=== PATIENT | female | born 1990 | race Caucasian/White ===

== ENCOUNTER 2018-05-26 11:10 | Emergency (ER) | END 2018-05-26 14:19 | disposition home or self-care (01) ==

== ENCOUNTER 2018-09-14 16:55 | Outpatient (CLI) | payer OTHER ==
[~2018-09-14] VITALS: Ht 154.9 cm; Wt 82.2 kg
[2018-09-14] MEDS ORDERED: PNV11TAB PO (17:34)
[2018-09-14 17:35] VITALS: BP 113/73; PULSE 95; RESP 18; Ht 154.9 cm; Wt 82.2 kg
--- NOTE | 2018-09-14 21:24 | PN ---
Triage Information Date/Time Reason for visit: Possible leakage of fluid and vaginal discharge Weeks of Gestation 23 weeks and 6 days /Para G 3 para 1011 Diabetes: none Hypertention: none Objective Vital Signs Date Temp Pulse Resp B/P (MAP) Pulse Ox O2 O2 Flow FiO2 Time Delivery Rate 09/14/18 98.1 95 18 113/73 Room Air 17:35 (86) Heart Rate: 130's Contractions: None Results/Medications Results 24 hrs Laboratory Tests Test 09/14/18 18:00 09/14/18 19:00 Membranes Rupture NEGATIVE Urine Color YELLOW Urine Clarity SLIGHTLY CLOUDY A Urine pH 7.0 Urine Specific [place] 1.010 Urine Ketones NEGATIVE Urine Nitrite NEGATIVE Urine Bilirubin NEGATIVE Urine Urobilinogen NEGATIVE Urine Leukocyte Esterase TRACE A Urine Microscopic RBC 1 Urine Microscopic WBC 1 Urine Squamous Epithelial Cells MODERATE Urine Bacteria FEW A Urine Hemoglobin NEGATIVE Urine Glucose NEGATIVE Urine Total Protein NEGATIVE Imaging Results FINDINGS: position: Variable. heart rate: 157 bpm. Placenta location: Posterior with a grade of 1. Previa: None. Abruption: None. Cervix: Closed with a length of 4.0 cm. MVP: 6.4 cm. IMPRESSION: Single live intrauterine gestation in variable position. MVP = 6.4 cm. Disposition: Discharge Assessment/Plan 28-year-old with single intrauterine at 23 weeks and 6 days with a JANIE of 01/05/2019 complaining of possible leakage of fluid and vaginal discharge. heart rate is category 1. She has no uterine contractions. Ultrasound performed as noted above. Speculum exam performed moderate amount of discharge, no leakage of fluid or gush of fluid seen. ROM plus is collected. Nitrazine test was negative. ROM plus was negative. Patient reassured. Prescription for metronidazole 500 mg every 12 hours for 7 days given for possible bacterial vaginosis. Symptoms and sign of labor, preeclampsia, kick count discussed with patient, she voiced understanding. All of her questions answered. Patient was discharged home in stable condition with the appropriate discharge instructions provided. I would like patient to have close follow-up with her primary physician or outpatient clinic in 1-2 days or return to triage for worsening symptoms or any other urgent concerns. WILLY STROUD Sep 14, 2018 21:24
--- NOTE | 2018-09-14 23:18 | TRIAGE ---
OB Triage Datetime Report Generated by CPN: 09/14/2018 23:18 Datetime: 09/14/2018 21:13 Monitor Mode: External Datetime: 09/14/2018 21:00 Labor Evaluation Frequency: 0 Monitor Mode: External Datetime: 09/14/2018 20:00 Labor Evaluation Frequency: X1 Monitor Mode: External Duration (sec)2399: 40 Quality: Mild Pattern: Normal: <= 5 Contractions in 10 Minutes Resting Tone [place]: Relaxed Datetime: 09/14/2018 19:25 Pain Assessment Pain Scale: 6 Pain Presence: Constant Pain Type: Ache Pain Location: Back; Left Flank Pain Goal: 2 Pain Assessment Comments: pt complaining of 6/10 constant back pain and left sided flank pain upon percussion. Datetime: 09/14/2018 18:17 Labor Evaluation Frequency: 0 Monitor Mode: External Pattern: Normal: <= 5 Contractions in 10 Minutes Resting Tone [place]: Relaxed Contraction Comments: NONE NOTED Heart Rate Monitor Mode: External US Variability: Moderate 6-25 bpm Accelerations: 10X10 Decelerations: None Category: Category I Datetime: 09/14/2018 17:56 Assessment Type: Triage EGA: 23.6 Maternal Assessment Level of Consciousness: Fully Conscious DTR's/Clonus: DTRs 2+; No Clonus Headache: Denies Blurred Vision: No Respiratory Effort: Unlabored; Regular Rhythm; Equal Expansion Breath Sounds, Left: Clear and Equal Breath Sounds, Right: Clear and Equal Nausea/Vomiting: Denies RUQ Epigastric Pain: Denies Lower Extremities Edema: None Degree: None Upper Extremities Edema: None Degree: None Facial Edema: None Fall Risk Assessment History of Falling: (0) No Secondary Diagnosis: (0) No Ambulatory Aid: (0) Bedrest/Nurse Assist IV Therapy: (0) No Gait: (0) Normal/Bedrest/Immobile Mental Status: (0) Oriented to Own Ability Fall Score: 0 Fall Risk Score Definition: No Risk: No action required Datetime: 09/14/2018 17:54 Time of Arrival: 09/14/2018 16:47 Arrived By: Ambulatory Arrived From: Home Chief Complaint: leaking since last week Movement: Present Contractions: Denies/Absent Rupture of Membranes: Denies Vaginal Bleeding: None Vaginal Discharge: Denies Recent Sexual Intercouse: Denies Abdominal Trauma: Not Applicable Patient Complaints: Other Time Provider Notified: 09/14/2018 21:02 Provider Notified: LUANNE Initial Plan: nst, rom+, BPP, CERVICAL LENGTH, UA URINE C_S
== END 2018-09-14 21:22 | disposition home or self-care (01) ==
LOC: OBT 16:55 → L-D 16:57 → SDS 17:10 → L-D 17:19 → OBT 21:22
PROVIDERS: ATTEND Obstetrics & Gynecology
DX: O41.92X0 Disorder of amniotic fluid and membranes, unspecified, second trimester, not applicable or unspecified (principal); Z3A.23 23 weeks gestation of pregnancy
CPT/HCPCS: 76815; 76817; 81001; 84112; 87086; Z7500; G0463

== ENCOUNTER 2018-10-08 18:01 | Outpatient (CLI) | payer OTHER ==
[~2018-10-08] VITALS: Ht 160 cm; Wt 84.5 kg
[~2018-10-08 18:01] MED LIST: PNV11TAB PO
[2018-10-08 18:23] VITALS: Ht 160 cm; Wt 84.5 kg
[2018-10-08 18:24] VITALS: BP 113/66; PULSE 122; RESP 18
--- NOTE | 2018-10-09 01:14 | PN ---
Triage Information Date/Time October 09, 2018 Reason for visit: Abd/pelvic pain Weeks of Gestation 27 weeks and 2 days /Para 4 para 1 Diabetes: none Hypertention: none Additional information 28-year-old with IUP at 27 weeks and 2 days presented with complaint of lower abdominal pain and pelvic pressure. She denies any urinary symptoms. She denies any leaking of fluid, vaginal bleeding or decreased movement. Objective Vital Signs Date Temp Pulse Resp B/P (MAP) Pulse Ox O2 O2 Flow FiO2 Time Delivery Rate 10/08/18 97.8 122 18 113/66 18:24 (82) Heart Rate: 130's Heart Rate Comments Category 1 and appropriate for gestational age Contractions: None Exam General appearance: Alert and oriented x4 does not appear to be in any acute distress Abdomen: Soft, gravid, fundal height consider gestational age NST: Category 1 and appropriate for gestational age No contraction noted on the toco Cervical length 4 cm Fever: 8/8 Results/Medications Result Diagram: 10/08/18 1914 Results 24 hrs Laboratory Tests Test 10/08/18 18:15 10/08/18 19:14 Urine Color STRAW Urine Clarity CLEAR Urine pH 7.0 Urine Specific [place] 1.008 Urine Ketones NEGATIVE Urine Nitrite NEGATIVE Urine Bilirubin NEGATIVE Urine Urobilinogen NEGATIVE Urine Leukocyte Esterase NEGATIVE Urine Hemoglobin NEGATIVE Urine Glucose NEGATIVE Urine Total Protein NEGATIVE White Blood Count 10.1 Red Blood Count 3.49 L Hemoglobin 10.5 L Hematocrit 31.3 L Mean Corpuscular Volume 89.7 Mean Corpuscular Hemoglobin 30.1 Mean Corpuscular Hemoglobin Concent 33.5 Red Cell Distribution Width 14.1 Platelet Count 251 Mean Platelet Volume 8.9 Immature Granulocytes % 1.100 H Neutrophils % 67.2 Lymphocytes % 22.9 Monocytes % 7.5 Eosinophils % 1.1 Basophils % 0.2 Nucleated Red Blood Cells % 0.0 Immature Granulocytes # 0.110 H Neutrophils # 6.8 Lymphocytes # 2.3 Monocytes # 0.8 Eosinophils # 0.1 Basophils # 0.0 Nucleated Red Blood Cells # 0.0 Imaging Results PROCEDURE: US biophysical profile. CLINICAL INDICATION: labor. well-being. TECHNIQUE: Multiple sonographic images of the uterus were obtained. The images were reviewed on a PACS workstation. COMPARISON: US PELVIS 09/14/2018 FINDINGS: There is a single live intrauterine gestation. heart rate is 150 beats per minute. The position is breech. The placenta is posterior fundal, grade 1. The MVP is 8.2 cm. The cervix is closed and measures 4 cm. Breathing Movement: 2 Gross Body Movement: 2 Tone: 2 Qualitative Amniotic Fluid Volume: 2 TOTAL: 8 IMPRESSION: 1. Single viable intrauterine gestation. 2. Biophysical profile = 8/8. 3. MVP = 8.2 cm. 4. The cervix is closed and measures 4 cm. RPTAT: HH Disposition: Discharge Assessment/Plan IUP at 27 weeks and 2 days No evidence of labor Doing well lower abdominal pain, musculoskeletal Reassured. Patient discharged home Strict labor precautions kick count and follow-up with primary OB office within 48 hours after discharge from the hospital discussed with patient All questions were answered to patient's best satisfaction Patient verbalized understanding and agreed to comply with instructions. RASHEED STARKEY MD Oct 09, 2018 01:14
== END 2018-10-08 20:25 | disposition home or self-care (01) ==
LOC: OBT 18:01 → L-D 18:02 → OBT 20:25
PROVIDERS: ATTEND Obstetrics & Gynecology
DX: O26.892 Other specified pregnancy related conditions, second trimester (principal); Z3A.27 27 weeks gestation of pregnancy; R10.2 Pelvic and perineal pain
CPT/HCPCS: 76817; 76818; 81003; 85025; 87086; Z7500; G0463

== ENCOUNTER 2018-10-19 11:43 | Outpatient (CLI) | payer OTHER ==
[~2018-10-19] VITALS: Ht 160 cm; Wt 84.2 kg
[2018-10-19 12:06] VITALS: BP 115/61; PULSE 96; RESP 18
[2018-10-19 12:07] VITALS: Ht 160 cm; Wt 84.2 kg
--- NOTE | 2018-10-19 16:16 | PN ---
Triage Information Date/Time Reason for visit: Uterine contractions Weeks of Gestation 28+ /Para 4/1 Diabetes: none Hypertention: none Objective Vital Signs Date Temp Pulse Resp B/P (MAP) Pulse Ox O2 O2 Flow FiO2 Time Delivery Rate 10/19/18 97.2 96 18 115/61 Room Air 12:06 (79) Heart Rate: 140's Contractions: None Results/Medications Result Diagram: 10/19/18 1442 Results 24 hrs Laboratory Tests Test 10/19/18 11:12 10/19/18 14:42 Urine Color STRAW Urine Clarity CLEAR Urine pH 7.0 Urine Specific [place] 1.005 Urine Ketones NEGATIVE Urine Nitrite NEGATIVE Urine Bilirubin NEGATIVE Urine Urobilinogen NEGATIVE Urine Leukocyte Esterase NEGATIVE Urine Hemoglobin NEGATIVE Urine Glucose NEGATIVE Urine Total Protein NEGATIVE White Blood Count 9.2 Red Blood Count 3.77 L Hemoglobin 11.3 L Hematocrit 34.0 L Mean Corpuscular Volume 90.2 Mean Corpuscular Hemoglobin 30.0 Mean Corpuscular Hemoglobin Concent 33.2 Red Cell Distribution Width 15.1 H Platelet Count 251 Mean Platelet Volume 9.2 Immature Granulocytes % 0.500 H Neutrophils % 72.6 Lymphocytes % 19.0 Monocytes % 6.9 Eosinophils % 0.8 Basophils % 0.2 Nucleated Red Blood Cells % 0.0 Immature Granulocytes # 0.050 H Neutrophils # 6.7 Lymphocytes # 1.8 Monocytes # 0.6 Eosinophils # 0.1 Basophils # 0.0 Nucleated Red Blood Cells # 0.0 Disposition: Discharge Assessment/Plan Ultrasound reviewed NSt reassuring [place] No CTXs CXL WNL Discharged with precautions Questions answered F/u with provider JEANNE FLOYD M.D. Oct 19, 2018 16:16
== END 2018-10-19 16:15 | disposition home or self-care (01) ==
LOC: OBT 11:43 → L-D 11:43 → OBT 16:15
PROVIDERS: ATTEND Obstetrics & Gynecology
DX: O62.9 Abnormality of forces of labor, unspecified (principal); Z3A.28 28 weeks gestation of pregnancy
CPT/HCPCS: 76817; 76818; 81003; 85025; 87086; Z7500; G0463

== ENCOUNTER 2019-01-03 08:00 | Inpatient (IN) | payer OTHER ==
[~2019-01-03] VITALS: Ht 154.9 cm; Wt 86.8 kg
[2019-01-03 08:38] VITALS: Ht 154.9 cm; Wt 86.8 kg
[2019-01-03 08:42] VITALS: BP 110/67; PULSE 90; RESP 18
[2019-01-03] MEDS ORDERED: OXYTOCIN 30 UNITS/LR 500 ML IV SCH ×2 (09:00)
[2019-01-03] MEDS ORDERED: LIDOCAINE 1% (MPF) 30 ML INJ INJ PRN (09:00)
[2019-01-03] MEDS ORDERED: MISOPROSTOL 200 MCG TAB PR PRN (09:00)
[2019-01-03] MEDS ORDERED: CARBOPROST 250 MCG INJ IM PRN (09:00)
[2019-01-03] MEDS ORDERED: METHYLERGONOVINE 0.2 MG INJ IM PRN (09:00)
[2019-01-03] MEDS ORDERED: OXYTOCIN 30 UNITS/LR 500 ML IV PRN (09:00)
[2019-01-03] MEDS ORDERED: BUTORPHANOL 2 MG INJ IV PRN (09:00)
[2019-01-03] MEDS ORDERED: IBUPROFEN 600 MG TAB PO PRN (09:00)
[2019-01-03] MEDS: LACTATED RINGER'S 1,000 ML IV SCH ×2 (09:21→18:47)
[2019-01-03] MEDS ORDERED: CLINDAMYCIN 900 MG INJ IV ONE (10:10)
[2019-01-03] MEDS ORDERED: CLINDAMYCIN 900 MG/D5W (PMX) 50 ML IVPB SCH (10:30)
[2019-01-03] MEDS: CLINDAMYCIN 900 MG/D5W (PMX) 50 ML IVPB SCH ×3 (11:08→22:43)
[2019-01-03] MEDS: MISOPROSTOL 50 MCG CAPSULE PO SCH ×3 (11:50→22:43)
[2019-01-03] MEDS ORDERED: MISOPROSTOL 50 MCG CAPSULE PO SCH (12:00)
--- NOTE | 2019-01-03 19:16 | HP ---
Date/Time of Note Date/Time of Note DATE: 01/03/19 TIME: 19:14 OB - History Hx of Present Free Text/Dictation 28-year-old female 4 para 1 AB 2 at 39 weeks and 5 days gestation admitted for elective induction of labor Last Menstrual Period: Mar 31, 2018 Estimated Due Date: Jan 05, 2019 : 4 Para: 1 Spontaneous : 2 Care: Good Care Ultrasounds: Normal mid trimester US Obstetrical Complications: None Medical Complications: None Past Family/Social History * Past Medical, Surgical, Family and Obstetric Histories reviewed from chart. Blood Type: O+ Rubella: immune RPR/VDRL: Negative GBS Status: Positive HBsAG: Negative OB Admission Exam Vital Signs Vital Signs Vital Signs Date Temp Pulse Resp B/P (MAP) Pulse Ox O2 O2 Flow FiO2 Time Delivery Rate 01/03/19 98.1 90 18 110/67 Room Air 08:42 (81) Physical Exam HEENT: WNL Heart: Rhythm Normal Lungs: Clear, Equal Abdomen: WNL Extremities: Normal Reflexes: Normal Cervical Dilatation: Fingertip Effacement: 0% Station: -3 Membranes: Intact Heart Rate: 140's Accelerations: Accelerations Present Decelerations: No Decelerations Varibility: Marked Contractions on Admission: None Last 72 hours Lab Results CBC & BMP 01/03/19 09:00 OB Assessment/Plan Reason for admission: induction of labor Other Assessment: Term gestation For elective induction of labor Other plan: Induce labor using Cytotec EMILI ARAUJO MD Jan 03, 2019 19:16
[2019-01-03] MEDS ORDERED: LACTATED RINGER'S 1,000 ML IV PRN (21:09)
[2019-01-04] MEDS: MISOPROSTOL 50 MCG CAPSULE PO SCH
[2019-01-04] MEDS: LACTATED RINGER'S 1,000 ML IV SCH ×3 (02:07→15:49)
[2019-01-04] MEDS ORDERED: OXYTOCIN 30 UNITS/LR 500 ML IV SCH (04:00)
[2019-01-04] MEDS: CLINDAMYCIN 900 MG/D5W (PMX) 50 ML IVPB SCH ×2 (05:07→11:31)
[2019-01-04] MEDS ORDERED: FENTAnyl 2MCG/ML-ROPIV 0.2% 100 ML ONE (15:23)
[2019-01-04] MEDS ORDERED: MINERAL OIL LIGHT 10 ML VIAL TOP ONE (17:00)
[2019-01-04] MEDS ORDERED: KETOROLAC 30 MG INJ IV STA (18:43)
--- NOTE | 2019-01-04 18:43 | LDN ---
Date/Time of Note Date/Time of Note DATE: 01/04/19 TIME: 18:40 Delivery Summary Normal spontaneous vaginal delivery of a viable over intact perineum Weeks of Gestation 39 weeks and 6 days Placenta Delivered: Spontaneously, Intact & Complete Meconium: none Episiotomy: No Laceration repair: Small periurethral laceration was closed using 4-0 chromic on a small half needle Anesthesia type: Epidural Estimated blood loss: 300 Sponge & Needle done & correct: Yes All needle counts correct: Yes Any foreign bodies felt in the: No Infant Delivery Information Sex Infant Sex: male Apgars 1 Minute: 9 5 Minute: 9 Suctioning Nose & mouth suctioned at karin: Yes Delee suction performed: No Umbilical Cord Umbilical cord with: 3 Vessels Cord presentations: no nuchal cord Cord Blood was obtained: Yes Mother & Baby Disposition Disposition Mom & Baby to Maternity; Good: Yes (Mother and baby were recovered in good condition) Mom transferred to: Other (Maternity) Baby to NICU: No EMILI ARAUJO MD Jan 04, 2019 18:43
[2019-01-04] MEDS ORDERED: ACETAMINOPHEN 325 MG TAB PO PRN (19:00)
[2019-01-04 20:25] VITALS: BP 110/55; PULSE 87; RESP 16
[2019-01-04] MEDS ORDERED: METHYLERGONOVINE 0.2 MG INJ IM PRN (21:30)
[2019-01-04] MEDS ORDERED: CARBOPROST 250 MCG INJ IM PRN (21:30)
[2019-01-04] MEDS ORDERED: WITCH HAZEL/GLYCERIN PAD PR PRN (21:30)
[2019-01-04] MEDS ORDERED: MISOPROSTOL 200 MCG TAB PR PRN (21:30)
[2019-01-04] MEDS ORDERED: LANOLIN HPA 1 PKT TOP PRN (21:30)
[2019-01-04] MEDS ORDERED: DIBUCAINE 1% 30 GM OINT TOP PRN (21:30)
[2019-01-04] MEDS ORDERED: ZOLPIDEM 5 MG TAB PO PRN (21:30)
[2019-01-04] MEDS ORDERED: HYDROCODONE/APAP (5/325) TAB PO PRN ×2 (21:30)
[2019-01-04] MEDS ORDERED: OXYTOCIN 30 UNITS/LR 500 ML IV PRN (21:30)
[2019-01-04] MEDS ORDERED: BENZOCAINE 20% 56 ML SPRAY TOP PRN (21:30)
[2019-01-04] MEDS: SENNA/DOCUSATE NA (8.6MG/50MG) TAB PO SCH (22:52)
[2019-01-04] MEDS: MAGNESIUM HYDROXIDE 30ML CUP PO SCH (22:52)
[2019-01-04] MEDS: NITROFURANTOIN (SR) 100 MG CAP PO SCH (23:07)
[2019-01-04] MEDS: IBUPROFEN 600 MG TAB PO SCH (23:07)
[2019-01-04] MEDS: LACTATED RINGER'S 1,000 ML IV* SCH (23:07)
[2019-01-05] VITALS (19 sets, daily range): BP systolic 91–115; BP diastolic 51–76; PULSE 68–99; RESP 12–27
[2019-01-05] MEDS ORDERED: CEPHALEXIN 500 MG CAP PO SCH
--- NOTE | 2019-01-05 03:23 | PAC ---
Date/Time of Note Date/Time of Note DATE: 01/05/19 TIME: 03:23 Post-Anesthesia Notes Post-Anesthesia Note Last documented vital signs Vital Signs Date Temp Pulse Resp B/P (MAP) Pulse Ox O2 O2 Flow FiO2 Time Delivery Rate 01/05/19 98.9 99 17 101/59 00:00 (73) 01/04/19 Room Air 20:25 Activity: WNL Respiratory function: WNL Cardiovascular function: WNL Mental status: Baseline Pain reasonably controlled: Yes Hydration appropriate: Yes Nausea/Vomiting absent: Yes STACIE BECKER MD Jan 05, 2019 03:23
[2019-01-05] MEDS ORDERED: DIPHENHYDRAMINE 50 MG INJ IV PRN (03:30)
[2019-01-05] MEDS ORDERED: NALOXONE (0.4 MG/ML) INJ IV PRN (03:30)
[2019-01-05] MEDS ORDERED: TRIMETHOBENZAMIDE 100 MG/ML VIAL IM PRN (03:30)
[2019-01-05] MEDS ORDERED: ONDANSETRON 4 MG INJ IV PRN (03:30)
[2019-01-05] MEDS: IBUPROFEN 600 MG TAB PO SCH ×3 (05:34→19:00)
[2019-01-05] MEDS: LACTATED RINGER'S 1,000 ML IV* SCH ×3 (05:54→18:01)
[2019-01-05] MEDS: MAGNESIUM HYDROXIDE 30ML CUP PO SCH ×2 (09:00→21:49)
[2019-01-05] MEDS: SENNA/DOCUSATE NA (8.6MG/50MG) TAB PO SCH ×2 (09:00→21:49)
[2019-01-05] MEDS: NITROFURANTOIN (SR) 100 MG CAP PO SCH ×2 (09:00→21:49)
--- NOTE | 2019-01-05 13:30 | PN ---
Date/Time of Note Date/Time of Note DATE: 01/05/19 TIME: 13:29 Assessment/Plan VTE Prophylaxis Risk score (from Ns)>0 risk: 1 [place] [facility] [place] contraindicated: low risk/ambulating Pharmacological prophylaxis: NA/contraindicated Pharm contraindication: low risk/ambulating Lines/Catheters IV [facility] ([facility] Peripheral IV Assessment/Plan Assessment/Plan Status post vaginal delivery day #1 Request was placed for sterilization with surgical department pending approval We will proceed with BTL if time allows Result Diagram: 01/05/19 0603 Results 24hrs Laboratory Tests Test 01/05/19 06:03 White Blood Count 9.3 Red Blood Count 3.88 L Hemoglobin 11.4 L Hematocrit 33.7 L Mean Corpuscular Volume 86.9 Mean Corpuscular Hemoglobin 29.4 Mean Corpuscular Hemoglobin Concent 33.8 Red Cell Distribution Width 14.6 H Platelet Count 180 Mean Platelet Volume 10.0 Immature Granulocytes % 0.400 Neutrophils % 73.7 Lymphocytes % 18.8 Monocytes % 6.7 Eosinophils % 0.3 Basophils % 0.1 Nucleated Red Blood Cells % 0.0 Immature Granulocytes # 0.040 H Neutrophils # 6.9 Lymphocytes # 1.8 Monocytes # 0.6 Eosinophils # 0.0 Basophils # 0.0 Nucleated Red Blood Cells # 0.0 Subjective 24 Hr Interval Summary Free Text/Dictation No major complaints but desires sterilization Constitutional: no complaints, improved Eyes: no complaints ENT: no complaints Respiratory: no complaints Cardiovascular: no complaints Gastrointestinal: no complaints Genitourinary: no complaints Musculoskeletal: no complaints Skin: no complaints Neurologic: no complaints Endocrine: no complaints Lymphatic: no complaints Psychological: no complaints, nl mood/affect Immunologic: no complaints Exam/Review of Systems Exam Vitals Vital Signs Date Temp Pulse Resp B/P (MAP) Pulse Ox O2 O2 Flow FiO2 Time Delivery Rate 01/05/19 97.9 77 18 102/56 Room Air 11:57 (71) Intake and Output 01/04/19 01/04/19 01/05/19 1515:00 23:00 07:00 IntakeIntake Total 1300 ml 1375 ml OutputOutput Total 1100 ml 1735 ml BalanceBalance 200 ml -360 ml Exam Abdomen is soft with firm fundus Patient is evaluated sterilization consent Results Results 24hrs Laboratory Tests Test 01/05/19 06:03 White Blood Count 9.3 Red Blood Count 3.88 L Hemoglobin 11.4 L Hematocrit 33.7 L Mean Corpuscular Volume 86.9 Mean Corpuscular Hemoglobin 29.4 Mean Corpuscular Hemoglobin Concent 33.8 Red Cell Distribution Width 14.6 H Platelet Count 180 Mean Platelet Volume 10.0 Immature Granulocytes % 0.400 Neutrophils % 73.7 Lymphocytes % 18.8 Monocytes % 6.7 Eosinophils % 0.3 Basophils % 0.1 Nucleated Red Blood Cells % 0.0 Immature Granulocytes # 0.040 H Neutrophils # 6.9 Lymphocytes # 1.8 Monocytes # 0.6 Eosinophils # 0.0 Basophils # 0.0 Nucleated Red Blood Cells # 0.0 Medications Medication Current Medications Acetaminophen (Tylenol Tab) 650 mg Q6H PRN PO MILD PAIN(1-3)OR ELEVATED TEMP; Start 01/04/19 at 19:00 Lactated Ringer's 1,000 ml @ 125 mls/hr Q8H IV* Last administered on 01/05/19at 05:54; Admin Dose 125 MLS/HR; Start 01/04/19 at 21:25 Ibuprofen (Motrin) 600 mg Q6 PO Last administered on 01/05/19at 05:34; Admin Dose 600 MG; Start 01/05/19 at 00:00 Acetaminophen/ Hydrocodone Bitart ([place] (5/325)) 1 tab Q4H PRN PO .PAIN 1-5; Start 01/04/19 at 21:30 Acetaminophen/ Hydrocodone Bitart ([place] (5/325)) 2 tab Q4H PRN PO .PAIN 6-10; Start 01/04/19 at 21:30 Zolpidem Tartrate (Ambien) 5 mg QHS PRN PO .INSOMNIA; Start 01/04/19 at 21:30 Senna/Docusate Sodium (Senokot-S) 1 tab BID PO Last administered on 01/04/19at 22:52; Admin Dose 1 TAB; Start 01/04/19 at 21:30 Magnesium Hydroxide (Milk Of Mag) 30 ml Q12 PO Last administered on 01/04/19at 22:52; Admin Dose 30 ML; Start 01/04/19 at 21:30 Witch Pepper/ Glycerin (Tucks Pads) 1 pad BEDSIDE MEDICATION PRN DE .HEMORRHOID/EPISIOTOMY PAIN Last administered on 01/04/19at 22:52; Admin Dose 40 PAD; Start 01/04/19 at 21:30 Benzocaine (Dermoplast [place]) 1 spray BEDSIDE MEDICATION PRN TOP .HEMMORHOID/EP ISIOTOMY PAIN Last administered on 01/04/19at 22:53; Admin Dose 56 SPRAY; Start 01/04/19 at 21:30 Dibucaine (Nupercainal) 1 applic BEDSIDE MEDICATION PRN TOP .HEMMORHOID/EPISIOTOMY; Start 01/04/19 at 21:30 Lanolin (Lanolin Hpa) 1 applic BEDSIDE MEDICATION PRN TOP .NIPPLES; Start 01/04/19 at 21:30 Measles/Mumps/ Rubella Vaccine Live (Mmr Ii Vaccine) 0.5 ml ONCE ONCE SC* ; Start 01/06/19 at 09:00; Stop 01/06/19 at 09:01 Diphtheria/ Tetanus/Acell Pertussis (Adacel) 0.5 ml ONCE ONCE IM* ; Start at 09:00; Stop 01/06/19 at 09:01 Varicella Virus Vaccine Live (Varivax Vaccine With Diluent) 1,350 unit ONCE ONCE SC* ; Start 01/06/19 at 09:00; Stop 01/06/19 at 09:01 Oxytocin/Lactated Ringer's 500 ml @ 0 mls/hr ONCE PRN IV .VAGINAL BLEEDING; Start 01/04/19 at 21:30 Methylergonovine Maleate (Methergine) 0.2 mg ONCE PRN IM .VAGINAL BLEEDING; Start 01/04/19 at 21:30 Carboprost Tromethamine (Hemabate) 250 mcg ONCE PRN IM .VAGINAL BLEEDING; Start 01/04/19 at 21:30 Misoprostol (Cytotec) 1,000 mcg ONCE PRN DE .VAGINAL BLEEDING; Start 01/04/19 at 21:30 Nitrofurantoin Macrocrystals (Macrobid) 100 mg BID PO Last administered on 01/04/19at 23:07; Admin Dose 100 MG; Start 01/05/19 at 00:00 Naloxone HCl (Narcan) 0.1 mg Q2M PRN IV .RESP RATE; Start 01/05/19 at 03:30; Stop 01/06/19 at 03:29 Diphenhydramine HCl (Benadryl) 25 mg Q6H PRN IV .ITCHING; Start 01/05/19 at 03:30; Stop 01/06/19 at 03:29 Ondansetron HCl (Zofran Inj) 4 mg Q6H PRN IV .NAUSEA/VOMITING; Start 01/05/19 at 03:30; Stop 01/06/19 at 03:29 Trimethobenzamide HCl (Tigan) 200 mg Q6H PRN IM .NAUSEA/VOMITING; Start 01/05/19 at 03:30; Stop 01/06/19 at 03:29 EMILI ARAUJO MD Jan 05, 2019 13:30
[2019-01-05] MEDS ORDERED: BUPIVACAINE 0.25%/EPI (SDV) 30 ML INJ ONE (17:00)
[2019-01-05] MEDS ORDERED: BUPIVACAINE 0.25%/EPI (SDV) 30 ML INJ INJ ONE (17:08)
--- NOTE | 2019-01-05 17:29 | PREAC ---
Date/Time of Note Date/Time of Note DATE: 01/05/19 TIME: 17:28 Anesthesia Eval and Record Evaluation Time Pre-Procedure Interview DATE: 01/05/19 TIME: 17:28 Age 28 Sex female NPO: 8 hrs Preoperative diagnosis sterilization Planned procedure tubal ligation Past Medical History Past Medical History: Includes GI: Obesity Surgery & Anesthesia Issues No known issue Meds Anticoagulation: No Beta Shira within 24 hr: No Reason Beta Shira not given: Pt. not on B-Shira Reported Medications [id number] ( 19) 1 Each Tablet, 1 TAB PO DAILY, TAB 09/14/18 Current Medications Acetaminophen (Tylenol Tab) 650 mg Q6H PRN PO MILD PAIN(1-3)OR ELEVATED TEMP; Start 01/04/19 at 19:00 Lactated Ringer's 1,000 ml @ 125 mls/hr Q8H IV* Last administered on 01/05/19at 13:39; Admin Dose 125 MLS/HR; Start 01/04/19 at 21:25 Ibuprofen (Motrin) 600 mg Q6 PO Last administered on 01/05/19at 05:34; Admin D ose 600 MG; Start 01/05/19 at 00:00 Acetaminophen/ Hydrocodone Bitart ([place] (5/325)) 1 tab Q4H PRN PO .PAIN 1-5; Start 01/04/19 at 21:30 Acetaminophen/ Hydrocodone Bitart ([place] (5/325)) 2 tab Q4H PRN PO .PAIN 6-10; Start 01/04/19 at 21:30 Zolpidem Tartrate (Ambien) 5 mg QHS PRN PO .INSOMNIA; Start 01/04/19 at 21:30 Senna/Docusate Sodium (Senokot-S) 1 tab BID PO Last administered on 01/04/19at 22:52; Admin Dose 1 TAB; Start 01/04/19 at 21:30 Magnesium Hydroxide (Milk Of Mag) 30 ml Q12 PO Last administered on 01/04/19at 22:52; Admin Dose 30 ML; Start 01/04/19 at 21:30 Witch Pepper/ Glycerin (Tucks Pads) 1 pad BEDSIDE MEDICATION PRN MD .HEMORRHOID/EPISIOTOMY PAIN Last administered on 01/04/19at 22:52; Admin Dose 40 PAD; Start 01/04/19 at 21:30 Benzocaine (Dermoplast [place]) 1 spray BEDSIDE MEDICATION PRN TOP .HEMMORHOID/EPISIOTOMY PAIN Last administered on 01/04/19at 22:53; Admin Dose 56 SPRAY; Start 01/04/19 at 21:30 Dibucaine (Nupercainal) 1 applic BEDSIDE MEDICATION PRN TOP .HEMMOR HOID/EPISIOTOMY; Start 01/04/19 at 21:30 Lanolin (Lanolin Hpa) 1 applic BEDSIDE MEDICATION PRN TOP .NIPPLES; Start 01/04/19 at 21:30 Measles/Mumps/ Rubella Vaccine Live (Mmr Ii Vaccine) 0.5 ml ONCE ONCE SC* ; Start 01/06/19 at 09:00; Stop 01/06/19 at 09:01 Diphtheria/ Tetanus/Acell Pertussis (Adacel) 0.5 ml ONCE ONCE IM* ; Start 01/06/19 at 09:00; Stop 01/06/19 at 09:01 Varicella Virus Vaccine Live (Varivax Vaccine With Diluent) 1,350 unit ONCE ONCE SC* ; Start 01/06/19 at 09:00; Stop 01/06/19 at 09:01 Oxytocin/Lactated Ringer's 500 ml @ 0 mls/hr ONCE PRN IV .VAGINAL BLEEDING; Start 01/04/19 at 21:30 Methylergonovine Maleate (Methergine) 0.2 mg ONCE PRN IM .VAGINAL BLEEDING; Start 01/04/19 at 21:30 Carboprost Tromethamine (Hemabate) 250 mcg ONCE PRN IM .VAGINAL BLEEDING; Start 01/04/19 at 21:30 Misoprostol (Cytotec) 1,000 mcg ONCE PRN MD .VAGINAL BLEEDING; Start 01/04/19 at 21:30 Nitrofurantoin Macrocrystals (Macrobid) 100 mg BID PO Last administered on 01/04/19at 23:07; Admin Dose 100 MG; Start 01/05/19 at 00:00 Naloxone HCl (Narcan) 0.1 mg Q2M PRN IV .RESP RATE; Start 01/05/19 at 03:30; Stop 01/06/19 at 03:29 Diphenhydramine HCl (Benadryl) 25 mg Q6H PRN IV .ITCHING; Start 01/05/19 at 03:30; Stop 01/06/19 at 03:29 Ondansetron HCl (Zofran Inj) 4 mg Q6H PRN IV .NAUSEA/VOMITING; Start 01/05/19 at 03:30; Stop 01/06/19 at 03:29 Trimethobenzamide HCl (Tigan) 200 mg Q6H PRN IM .NAUSEA/VOMITING; Start 01/05/19 at 03:30; Stop 01/06/19 at 03:29 Meds reviewed: Yes Allergies Coded Allergies: Penicillins (Verified Allergy, Intermediate, sob, 01/03/19) Allergies Reviewed: Yes Labs/Studies Labs Reviewed: Reviewed by anesthesiologist Result Diagram: 01/05/19 0603 Laboratory Tests 01/05/19 06:03 test: Negative Pre-procedure Exam Last vitals Vital Signs Date Temp Pulse Resp B/P (MAP) Pulse Ox O2 O2 Flow FiO2 Time Delivery Rate 01/05/19 98.2 80 17 97/58 (71) Room Air 15:25 Airway: Adequate mouth opening, Adequate thyromental dist Mallampati: Mallampati III Teeth: Normal Lung: Normal Heart: Normal ASA Physical Status ASA physical status: 2 Emergency: None Pre-operative Attestations Prior to commencing anesthesia and surgery, the patient was re-evaluated, there was verification of: *The patient's identity *The results of appropriate recent lab work and preoperative vital signs *The above evaluation not changing prior to induction *Anesthetic plan, risk benefits, alternative and complications discussed with patient/family; questions answered; patient/family understands, accepts and wishes to proceed. SATISH ALLEN DO Jan 05, 2019 17:29
[2019-01-05] MEDS ORDERED: CLINDAMYCIN 900 MG/D5W (PMX) 50 ML IVPB ONE (17:54)
[2019-01-05] MEDS ORDERED: FENTAnyl 50 MCG/ML VIAL ONE (17:56)
[2019-01-05] MEDS ORDERED: MIDAZOLAM 1 MG/ML 2 ML INJ ONE (17:56)
[2019-01-05] MEDS ORDERED: ROPIVACAINE 0.5 % 30 ML VIAL ONE (18:17)
[2019-01-05] MEDS ORDERED: LACTATED RINGER'S 1,000 ML IV SCH (18:32)
[2019-01-05] MEDS ORDERED: KETOROLAC 60 MG INJ IM STA (18:32)
[2019-01-05] MEDS ORDERED: ACETAMINOPHEN 500 MG TAB PO STA (18:32)
--- NOTE | 2019-01-05 18:36 | PAC ---
Date/Time of Note Date/Time of Note DATE: 01/05/19 TIME: 18:35 Post-Anesthesia Notes Post-Anesthesia Note Last documented vital signs Vital Signs Date Temp Pulse Resp B/P (MAP) Pulse Ox O2 O2 Flow FiO2 Time Delivery Rate 01/05/19 98 82 17 105/65 100 Room Air 1830 Activity: WNL Respiratory function: WNL Cardiovascular function: WNL Mental status: Baseline Pain reasonably controlled: Yes Hydration appropriate: Yes Nausea/Vomiting absent: Yes SATISH ALLEN DO Jan 05, 2019 18:36
--- NOTE | 2019-01-05 18:37 | DS ---
Date/Time of Note Date/Time of Note Home today or next day DATE: 01/05/19 TIME: 18:35 Obstetrical Discharge Record Final Diagnosis Final Diagnosis: Term delivered Other Final Diagnosis Status post vaginal delivery and bilateral tubal ligation Vaginal Delivery Obstetrical Delivery: Spontaneous, Laceration, Repaired, Bilateral Tubal Ligation Complications Augmentation: Yes Induction: Yes Condition on Discharge Physical Assessment Last Vitals: See nurse's notes Voiding: Yes Bowel Movement: Yes Breast: Soft, non-tender, Filling Fundus: Firm Abdomen and Incision: Abdomen is soft firm fundus Episiotomy: Perineum is clean Calf Tenderness: No Patient Condition: Good EMILI ARAUJO MD Jan 05, 2019 18:36
--- NOTE | 2019-01-05 18:39 | OPR ---
Operative Report Planned Procedure Procedure date Jan 05, 2019 Procedure(s) Bilateral tubal ligation Performed by see signature line Anesthesiologist: SATISH ALLEN DO Pre-procedure diagnosis Status post vaginal delivery Multiparity with desire for sterilization [id number] Anesthesia Type: [id number] spinal Post-Procedure Post-procedure diagnosis Status post bilateral tubal ligation Findings Normal-appearing right and left fallopian tubes and ovaries Estimated Blood Loss: minimal Specimen(s) Segments of right and left fallopian tubes Grafts/Implant(s) none Complication(s) none Pt Condition post procedure: stable Disposition: PACU Procedure Description The patient was placed on the OR table in supine position. Spinal anesthesia was placed. A Liao catheter was then inserted into urinary bladder under aseptic condition. After induction of spinal anesthesia, with the patient in supine position, abdominal area was prepped and draped for usual tubal ligation procedure. Under satisfactory anesthesia, a small incision 2 to 3 cm in length was placed just below belly button, incision extended laterally to 1.5 cm lateral to the linea nigra on either side. Incision was carried down with sharp and blunt dissection until fascia was reached. Anterior recti muscle fascia was incised in the midportion. Incision extended laterally to the border of the skin incision. Peritoneum was visualized. Avoiding bowel or bladder, incision was made in peritoneum, which was extended laterally to the border of the skin incision. Two [place] retractors were placed inside the incision. Incision was brought up to the level of the left fallopian tube. Fallopian tube was raised in the mid portion. A clamp was placed below the fimbriated end, most of the fallopian tube from the mesosalpinx traversing the isthm us portion of the tube. Another clamp was placed just below the first and 0 Vicryl tie was used to tie the mesosalpinx and the stump of the fallopian tube on the proximal side. Another stitch of the same kind was used for adequate hemostasis. Hemostasis appeared to be secure on ligated sites of the fallopian tube. Tube was incised above the stitched area. Same procedure was done on the fallopian tube on opposite side. Hemostasis appeared to be secure on ligated sites of either fallopian tubes. Ovaries were within normal limits. Uterus appears to be size. Announcing needle, lap, sponge and instrument count to be correct, abdomen was closed in layers as follows: Peritoneum with running stitches of #1 Vicryl, fascia edges of #1 Vicryl, subcutaneous tissue with running stitches of #1 Vicryl, and skin was reapproximated using subcuticular stitches of 4-0 Monocryl on a PS2 needle and also Dermabond was placed on the incision. The patient tolerated the procedure very well and was transferred to postanesthesia recovery room in stable and good condition. ESTIMATED BLOOD LOSS: Less than 5 mL. EMILI ARAUJO MD Jan 05, 2019 18:39
[2019-01-05] MEDS ORDERED: ACET325T33 PO (18:41)
--- NOTE | 2019-01-05 18:41 | PD.PPDC ---
VECTOR CONTROL SPECIALIST Discharge Instruction Provider Information Physician Information 28-year-old female vaginal delivery and tubal ligation Diagnosis [id number] Final Diagnosis: [id number] Status post bilateral tubal ligation Condition [id number] Patient Condition: Lohde2v Good Diet Jqkej0Tm Diet: Cebeu3d Resume Regular Diet Activity/Restrictions [id number] Activity: Lsrwe0a May Shower Srzwx3Zh Restrictions: Pqduw1j No Exercising No Lifting Nothing in the Vagina [id number] Return to Work or School: Ifksa3i Feb 21, 2019 Follow-up Follow-up with Physician: 2, Week/Weeks Return to clinic for [id number] OB Instructions: Tyccq8z Breast Tenderness Depression Comment: Pelvic rest and no hard activity for 6 weeks EMILI ARAUJO MD Jan 05, 2019 18:41
[2019-01-05] MEDS ORDERED: IBUP-1542 PO (18:42)
[2019-01-05] MEDS ORDERED: KETOROLAC 30 MG INJ ONE (19:21)
[2019-01-05] MEDS ORDERED: KETOROLAC 30 MG INJ IM STA (19:27)
[2019-01-05] MEDS ORDERED: KETOROLAC 30 MG INJ IM SCH (20:00)
[2019-01-06] VITALS: BP 110/67; PULSE 68; RESP 18
[2019-01-06 04:00] VITALS: BP 112/76; PULSE 67; RESP 18
[2019-01-06] MEDS: IBUPROFEN 600 MG TAB PO SCH ×4 (05:52→17:59)
[2019-01-06 07:30] VITALS: BP 104/69; PULSE 60; RESP 16
[2019-01-06] MEDS ORDERED: VARICELLA VACCINE LIVE/PF 1,350 UNIT/0.5 ML ML SC* ONE (09:00)
[2019-01-06] MEDS ORDERED: DIPHTH/TET/ACEL PERTUSS (ADULT) 0.5 ML VIAL IM* ONE (09:00)
[2019-01-06] MEDS ORDERED: MEASLES,MUMPS,RUBELLA VACCINE INJ SC* ONE (09:00)
[2019-01-06] MEDS: MAGNESIUM HYDROXIDE 30ML CUP PO SCH (10:00)
[2019-01-06] MEDS: SENNA/DOCUSATE NA (8.6MG/50MG) TAB PO SCH (10:00)
[2019-01-06] MEDS: NITROFURANTOIN (SR) 100 MG CAP PO SCH (10:00)
[2019-01-06 16:00] VITALS: BP 121/78; PULSE 76; RESP 18
--- NOTE | 2019-01-07 18:57 | DELSUM ---
Delivery Summary A-C Datetime Report Generated by CPN: 01/07/2019 18:56 DELIVERY PERSONNEL Sales Development Director: Justina Willard MATERNAL INFORMATION Delivery Anesthesia: Epidural Medications in Delivery: pitocin 30 units in LR Delivery QBL (ml): 300 Placenta Cultured: No Maternal Complications: None LABOR SUMMARY EDC: 01/05/2019 00:00 No. Babies in Womb: 1 Attempted: No Labor Anesthesia: Epidural LABOR INFORMATION Reason for Induction: Other Reason for Induction- Other: Elective Onset of Labor: 01/03/2019 19:20 Complete Dilatation: 01/04/2019 17:51 Cervical Ripening Agents: Cytotec @ (Annotations: 50 mcg PO dose #3) Oxytocin: Induction Group B Beta Strep: Positive Antibiotics # of Doses: 5 Antibiotics Time of Last Dose: 01/04/2019 12:00 Steroids Given: None Reason Steroids Not Administered: Not Applicable MEMBRANES Membranes Rupture Method: Artificial Rupture of Membranes: 01/04/2019 14:48 Length of Rupture (hr): 3.67 Amniotic Fluid Color: Clear Amniotic Fluid Amount: Moderate Amniotic Fluid Odor: None STAGES OF LABOR Stage 1 hr: 22 Stage 1 min: 31 Stage 2 hr: 0 Stage 2 min: 37 Stage 3 hr: 0 Stage 3 min: 2 Total Time in Labor hr: 23 Total Time in Labor min: 10 VAGINAL DELIVERY Episiotomy: None Laceration Extension: N/A Laceration Type: Periurethral Laceration Repair: Yes Initial Vag Sponge Count: 15 Final Vag Sponge Count: 15 Initial Vag Sharps Count: 1 Final Vag Sharps Count: 2 Sponge Count Correct: Yes Sharps Count Correct: Yes BABY A INFORMATION Delivery Date/Time: 01/04/2019 18:28 Method of Delivery: Vaginal Born in Route : No : N/A Forceps: N/A Vacuum Extraction: N/A Shoulder Dystocia : N/A SHOULDER DYSTOCIA BABY A Delivery Date/Time: 01/04/2019 18:28 PRESENTATION/POSITION BABY A Presentation: Cephalic Cephalic Presentation: Vertex Vertex Position: Left Occipital Anterior Breech Presentation: N/A PLACENTA INFORMATION BABY A Placenta Delivery Time : 01/04/2019 18:30 Placenta Method of Delivery: Spontaneous Placenta Status: Delivered SCORES BABY A Heart Rate 1 min: >100 bpm Resp Effort 1 min: Good Cry Reflex Irritability 1 min: Cough/Sneeze/Pulls Away Muscle Tone 1 min: Active Motion Color 1 min: Body [place], Extremit Blue Resuscitation Effort 1 min: Tactile Stimulation SCORE 1 MIN: 9 Heart Rate 5 min: >100 bpm Resp Effort 5 min: Good Cry Reflex Irritability 5 min: Cough/Sneeze/Pulls Away Muscle Tone 5 min: Active Motion Color 5 min: Body [place], Extremit Blue Resuscitation Effort 5 min: Tactile Stimulation SCORE 5 MIN: 9 INFORMATION BABY A Gestational Age at Delivery: 39.6 Gestational Status: Full Term- 39- 40.6 Weeks Infant Outcome : Liveborn Infant Condition : Stable Sex: Male IDENTIFICATION/MEDS BABY A ID Band Number: [id number] ID Band Location: Right Leg; Left Arm Sensor Applied: Yes Sensor Number: [id number] Sensor Location : Cord Clamp Vitamin K Given : Not Given Erythromycin Given: Not Given WEIGHT/LENGTH BABY A Birthweight (gm): 3635 Infant Weight (lb): 8 Infant Weight (oz): 0 Length (in): 21.00 Infant Length (cm): 53.34 CORD INFORMATION BABY A No. Cord Vessels: 3 Nuchal Cord : N/A Cord Blood Taken: No Infant Suction: Mouth; Nose ASSESSMENT BABY A Infant Complications: None Physical Findings at Delivery: Within Normal Limits Respirations: Appears Normal Jointer Machine Operator/ALS Called : No Care By: JORGE ALEJANDRE Transferred To: Remains with Mother
== END 2019-01-06 18:30 | disposition home or self-care (01) | DRG 798 ==
LOC: L-D 08:27 → PP1 01-04 20:12
PROVIDERS: ADMIT Obstetrics & Gynecology; ATTEND Obstetrics & Gynecology
PROC: 10E0XZZ Delivery of Products of Conception, External Approach (ICD-10-PCS; principal; 2019-01-04)
PROC: 0UQMXZZ Repair Vulva, External Approach (ICD-10-PCS; 2019-01-04)
PROC: 0UT70ZZ Resection of Bilateral Fallopian Tubes, Open Approach (ICD-10-PCS; 2019-01-05)
DX: O71.82 Other specified trauma to perineum and vulva (principal); Z37.0 Single live birth; Z3A.39 39 weeks gestation of pregnancy; Z30.2 Encounter for sterilization
CPT/HCPCS: 62322; 76815; 85025; 85610; 85730; 86592; 86850; 86900; 86901; 87340; 88302; 90715; 90716; 99464; J0595; J1885; J2250; J2590; J2795; J3010; J7120